=== PATIENT | male | born 1960 | race Caucasian/White ===

== ENCOUNTER 2020-04-14 17:05 | Emergency (ER) | payer BC, SELFPAY ==
--- NOTE | ~2020-04-14 | XR_ITS ---
EXAMINATION: XR tibia fibula RT 2V DATE: 04/14/2020 18:06 INDICATION: Right lower leg pain. TECHNIQUE: 2 views of right tibia and fibula on 4 radiographs were obtained. COMPARISON: None. FINDINGS: Bone alignment is normal. No fracture. The right knee demonstrates moderate osteoarthritis in the medial compartment and mild osteoarthritis in the patellofemoral compartment. No knee joint ef fusion. There are enthesophytes at the posterior and plantar aspects of calcaneal tuberosity. There i s ankle soft tissue swelling. IMPRESSION: 1. Moderate right knee osteoarthritis. Reviewed, dictated and finalized at location A.
[2020-04-14 17:15] VITALS: BP 175/82; PULSE 64; RESP 18; TEMP 36.2; O2SAT 100
--- NOTE | 2020-04-14 17:31 | ED.GENADULT ---
HPI - General Adult General Chief complaint: Extremity Injury, Lower Stated complaint: leg injury Time Seen by Provider: 04/14/20 17:20 Source: patient History of Present Illness HPI narrative: Patient is a 59 y/o male complaining of right lower leg pain for 8 days. He states that he was accidentally kicked 8 days ago while playing soccer. There is no open wound. He describes the pain as a burning sensation. Ice helps the his pain. He rates his pain as 8/10 at worst and 0/10 currently. He is able to ambulate without assist. Related Data Home Medications Medication Instructions Recorded Confirmed lisinopril-hydrochlorothiazide tablet 04/14/20 losartan 04/14/20 metoprolol succinate PO 04/14/20 nifedipine PO 04/14/20 rivaroxaban [Xarelto] mg 04/14/20 Allergies Allergy/AdvReac Type Severity Reaction Status Date / Time No Known Allergies Allergy Verified 04/14/20 17:17 Review of Systems Constitutional: Constitutional: Denies chills, Denies fever(s), Denies headache(s) and Denies weakness Eyes: Eyes: Denies blurry vision ENT: Denies headache(s) and Denies neck pain Cardiovascular: Cardiovascular: Denies chest pain and Denies dyspnea Respiratory: Respiratory: Denies cough and Denies dyspnea Gastrointestinal: Gastrointestinal: Denies abdominal pain, Denies diarrhea, Denies nausea and Denies vomiting Genitourinary: Genitourinary: Denies hematuria and Denies dysuria Musculoskeletal: Musculoskeletal: Denies back pain, Denies neck pain and Reports other (+right leg pain) Integumentary/Breasts: Skin/Breast: Reports erythema (right lower leg) Neurologic: Denies headache(s) and Denies weakness [facility] Family History Family History (Updated 10/07/10 @ 16:30 by DOCTOR UNKNOWN) Other Diabetes mellitus Hypertension Social History Social History Alcohol intake: never Exam Const: General: no acute distress and well developed Orientation/consciousness: oriented to person, oriented to place, oriented to time and patient oriented x3 HENMT: Head: normocephalic Ears: external ears normal General nose exam: Normal external nose present Eyes: General: appearance normal, both eyes and all related structures Conjunctivae: conjunctivae normal Neck: Neck: normal visual inspection and full ROM Chest: Chest palpation & inspection: normal inspection of the chest and no tenderness Resp: Effort & Inspection: normal respiratory effort Auscultation: clear to auscultation bilaterally Cardio: Rate: regular rate Rhythm: regular rhythm GI: GI Palp: No abdominal tenderness and Yes Soft to palpation Skin: General skin exam: normal color, turgor normal and erythema (right lower leg) Neuro: General: oriented to person, oriented to place, oriented to time and patient oriented x3 Cognition (Neuro): normal cognition Extrem: General: normal to inspection, full ROM and no pedal edema Psych: Appearance: grossly normal Mental Status: mental status grossly normal Affect: normal affect Course Vital Signs Vital signs: Vital Signs Temperature 36.2 C L 04/14/20 17:15 Pulse Rate 64 04/14/20 17:15 Respiratory Rate 18 04/14/20 17:15 Blood Pressure 175/82 H 04/14/20 17:15 Pulse Oximetry 100 04/14/20 17:15 Temperature 36.2 C L 04/14/20 17:15 Pulse Rate 70 04/14/20 18:36 Respiratory Rate 12 04/14/20 18:36 Blood Pressure 165/70 H 04/14/20 18:36 Pulse Oximetry 99 04/14/20 18:36 Medical Decision Making Vital Signs Vital Signs: Vital Signs Temperature 36.2 C L 04/14/20 17:15 Pulse Rate 64 04/14/20 17:15 Respiratory Rate 18 04/14/20 17:15 Blood Pressure 175/82 H 04/14/20 17:15 Pulse Oximetry 100 04/14/20 17:15 Temperature 36.2 C L 04/14/20 17:15 Pulse Rate 70 04/14/20 18:36 Respiratory Rate 12 04/14/20 18:36 Blood Pressure 165/70 H 04/14/20 18:36 Pulse Oximetry 99 04/14/20 18:36 Lab Data Result diagrams: 04/14/20 17:45 09
[2020-04-14 17:51] LABS: Basophils Absolute Auto 0.1 K/mm3 (0.0-0.1); Basophils Percent Auto 0.9 % (0.2-1.2); Eosinophils Absolute Auto 0.2 K/mm3 (0-0.3); Eosinophils Percent Auto 2.7 % (0-4.4); Hematocrit 43.2 % (42.0-52.0); Hemoglobin 14.7 g/dL (14.0-18.0); Immature Granulocyte Absolute 0.02 K/mm3 (0.00-0.031); Immature Granulocyte Percent A 0.2 % (0-0.5); Lymphocytes Absolute Auto 1.42 K/mm3 (0.9-3.2); Lymphocytes Percent Auto 16.8 % (18.3-44.2); Mean Corpuscular Volume 85.2 fl (80-100); Mean Platelet Volume 10.3 fl (7.4-10.4); Monocytes Absolute Auto 0.6 K/mm3 (0.1-0.6); Monocytes Percent Auto 6.8 % (2.6-8.5); Neutrophils Absolute Auto 6.1 K/mm3 (1.3-6.7); Neutrophils Percent Auto 72.6 % (45.5-73.1); Platelet Count Result 308 k/mm3 (150-375); Red Blood Count 5.07 M/mm3 (4.6-6.20); Red Cell Distribution Width 13.4 % (11.5-14.5); White Blood Count 8.5 K/mm3 (4.5-10.0)
[2020-04-14 18:03] LABS: Anion Gap 7 mmol/L (8-16); Blood Urea Nitrogen 18 mg/dL (9-20); Calcium 9.3 mg/dL (8.4-10.2); Carbon Dioxide 28 mmol/L (22-30); Chloride 104 mmol/L (98-107); Estimated CRCL calculation 102 ml/min; Estimated Glomerular Filt Rate > 60; Glucose 101 mg/dL (75-110); Potassium 3.8 mmol/L (3.4-5.0); Sodium 139 mmol/L (137-145)
[2020-04-14 18:36] VITALS: BP 165/70; PULSE 70; RESP 12; O2SAT 99
== END 2020-04-14 18:37 | disposition home or self-care (01) ==
PROVIDERS: Emergency Provider Emergency Medicine; PCP Internal Medicine
DX: L03.115 Cellulitis of right lower limb (principal)
CPT/HCPCS: 36415; 73590; 80048; 85025; 99283